=== PATIENT | female | born 1960 | race African-American/Black ===

== ENCOUNTER 2025-01-17 13:13 | Emergency (ER) | payer MEDICAID ==
[~2025-01-17] VITALS: Ht 157.5 cm; Wt 108.0 kg
[2025-01-17 13:30] VITALS: O2SAT 96
[2025-01-17] MEDS ORDERED: LIDOCAINE 5% PATCH TOP STA (15:01)
[2025-01-17] MEDS: CYCLOBENZAPRINE 10MG TABLET PO ONE (15:55)
[2025-01-17] MEDS: LIDOCAINE 5% PATCH TOP SCH (15:55)
[2025-01-17] MEDS: KETOROLAC 30MG/ML VIAL IM ONE (15:55)
[2025-01-17] MEDS ORDERED: LIDO700A30 TP (17:34)
[2025-01-17] MEDS ORDERED: CYCL5TAB3 MT (17:34)
[2025-01-17] MEDS ORDERED: KETO10TA2 MT (17:34)
[2025-01-17 17:35] VITALS: BP 153/70; PULSE 72; RESP 18; TEMP 37.1; O2SAT 98
[2025-01-17] MEDS ORDERED: IBUP-2030 MT (18:33)
== END 2025-01-17 17:43 | disposition home or self-care (01) ==
LOC: ER 13:13
DX: S62.604A Fracture of unspecified phalanx of right ring finger, initial encounter for closed fracture (principal); M19.071 Primary osteoarthritis, right ankle and foot; Z79.899 Other long term (current) drug therapy; X58.XXXA Exposure to other specified factors, initial encounter; Y93.89 Activity, other specified; Y92.89 Other specified places as the place of occurrence of the external cause; Y99.8 Other external cause status
CPT/HCPCS: 72100; 73660; 96372; 99284; J1885; Z7610